=== PATIENT | male | born 1985 | race Caucasian/White ===

== ENCOUNTER 2022-05-08 10:29 | Emergency (ER) | payer BC, SELFPAY ==
[2022-05-08 10:34] VITALS: BP 125/83; PULSE 86; RESP 18; TEMP 37.2; O2SAT 98; BMI 25.1
[2022-05-08 10:47] LABS: MANUAL DIFF FLAG NO
[2022-05-08 10:48] LABS: Basophils Percent Auto 0.4 % (0-2); Eosinophils Absolute Auto 0.1 X10*3/uL (0.0-0.4); Eosinophils Percent Auto 1.3 % (0-4); Hematocrit 38.2 % (42.0-52.0); Hemoglobin 13.1 g/dl (14.0-18.0); Imm Gran Abs Auto 0.02 X10*3/uL (0.00-0.03); Imm Gran Pct Auto 0.3 % (0.0-0.4); Lymphocytes Absolute Auto 1.1 X10*3/uL (1.2-4.9); Lymphocytes Percent Auto 15.6 % (20-40); Mean Corpuscular HGB Conc 34.3 g/dl (31.0-36.0); Mean Corpuscular Hemoglobin 29.2 pg (27.0-33.0); Mean Corpuscular Volume 85.1 fL (80.0-98.0); Mean Platelet Volume 9.1 fL (9.4-12.4); Monocytes Absolute Auto 0.8 X10*3/uL (0.1-1.2); Neutrophils Percent Auto 71.4 % (45-73); Platelet Count 226 X10*3/uL (160-400); Red Blood Count 4.49 X10*6/uL (4.60-5.80)
[2022-05-08 11:07] LABS: COVID-19 Test Negative (Negative); IDNOW Serial# 16C4AD1C; IDNOW Serial# BCCEAD1C; Influenza A Negative (Negative); Influenza B2 Negative (Negative)
[2022-05-08 11:08] LABS: Anion Gap 13 (12-20); Blood Urea Nitrogen 14 mg/dL (9-16); Calcium 9.2 mg/dL (8.4-10.2); Carbon Dioxide 27 mmol/L (22-29); Chloride 105 mmol/L (96-108); Creatinine Clr Calc Pharmacy 115.5; Estimated Glomerular Filt Rate > 60; Glucose Fasting 109 mg/dL (60-99); Potassium 3.9 mmol/L (3.3-5.1); Sodium 141 mmol/L (135-145)
--- NOTE | 2022-05-08 11:19 | ED_ITS ---
HPI - General Adult General Chief complaint: Fever <Miriam Villar CNP - Last Filed: 05/08/22 13:36> Stated complaint: Fever/Diarrhea/Neck pain <Miriam Villar CNP - Last Filed: 05/08/22 13:36> Time Seen by Provider: 05/08/22 10:56 <Miriam Villar CATTYMAN - Last Filed: 05/08/22 13:36> Source: patient <Miriam Villar CNP - Last Filed: 05/08/22 13:36> Mode of arrival: ambulatory <Miriam Villar CNP - Last Filed: 05/08/22 13:36> Limitations: no limitations <Miriam Villar CNP - Last Filed: 05/08/22 13:36> History of Present Illness HPI narrative: Patient is a 36-year-old male who presents emergency department for evaluation. Patient reports 4 days ago with onset of stiffness to his back diffuse myalgias, feeling ?foggy?, and generalized fatigue. Three days ago he began having subjective fevers and chills. Reports 2 days ago T-max 102 degrees, was alternating between Tylenol and ibuprofen, which is resolved typically for hours before febrile again. Yesterday he began developing diffuse abdominal pain with diarrhea, reportedly experienced 6-8 episodes of watery/semi soft stools also with white mucus present, in small amounts of bright red blood. In addition, he was developing neck stiffness since yesterday that is made worse with rotation of the neck. He denies any known sick contacts. His is at home with him and is not experiencing any similar symptoms. He took it at home COVID-19 test the day that his symptoms started which was negative. Denies recent URI symptoms, ear pain, sore throat, chest pain, shortness of breath, difficulty breathing, vomiting. <Miriam Villar CNP - Last Filed: 05/08/22 13:36> Related Data Allergies/adverse reactions: Allergies Allergy/AdvReac Type Severity Reaction Status Date / Time loratadine Allergy Difficulty Verified 05/08/22 10:56 Swallowing <Miriam VillarSANYA - Last Filed: 05/08/22 13:36> Review of Systems Review of Systems: Yes all other systems are reviewed and are negative <Miriam Villar CNP - Last Filed: 05/08/22 13:36> [facility] Past Medical History Attestation statement: The following information was validated with the patient. <Miriam Villar CNP - Last Filed: 05/08/22 13:36> Source: old records reviewed <Miriam Villar CNP - Last Filed: 05/08/22 13:36> Social History Social History: Social History Advance Directives: No Advance Directives Information Provided: Yes <Miriam Villar CNP - Last Filed: 05/08/22 13:36> Physical Exam ED Vital Signs: Vital Signs - 24 hr 05/08/22 10:34 Temperature 98.9 F Pulse Rate 86 Respiratory Rate 18 Blood Pressure 125/83 Pulse Oximetry 98 Oxygen Delivery Method Room Air BMI result Body Mass Index 25.1 <Miriam Villar CNP - Last Filed: 05/08/22 13:36> Vital Signs - 24 hr 05/08/22 10:34 Temperature 98.9 F Pulse Rate 86 Respiratory Rate 18 Blood Pressure 125/83 Pulse Oximetry 98 Oxygen Delivery Method Room Air BMI result Body Mass Index 25.1 <Ezequiel Milligan MD - Last Filed: 05/08/22 11:49> Appearance: Alert.?Oriented to person, place and time. No acute dis tress.?Normal affect. Eyes: Pupils equal, round and reactive to light.? EOMI. No nystagmus. ENT: Pharynx normal.??TM normal bilaterally. Neck: Normal inspection.? Neck supple.? No nuchal rigidity. ? CVS: Heart sounds normal. Normal heart rate and rhythm.? Pulses normal.?? Respiratory: No respiratory distress.? Lung sounds clear to auscultation bilaterally?? Abdomen: Soft with diffuse abdominal tenderness. Normoactive bowel sounds.?? Skin: Skin warm and dry.? Normal skin color.? Extremities: No lower extremity edema.? No calf ttp? Neuro: Moves all extremities spontaneously. Sensation intact bilaterally. CN II- XII intact. No focal neuro deficits. Brudzinski sign negative, Kernig sign negative. Ambulates with normal steady gait. <Miriam Villar SANYA - Last Filed: 05/08/22 13:36> Course Reevaluation(s) Reevaluation #1: CBC reveals no leukocytosis or leukopenia, a very mild normocytic anemia, platelet count within normal limits. CMP is unremarkable, lipase within normal limits. COVID-19 and influenza testing are negative. Will obtain GI panel/C diff testing. <Miriam Villar CNP - Last Filed: 05/08/22 13:36> Time: 11:30 <Miriam Villar CNP - Last Filed: 05/08/22 13:36> Reevaluation #2: I agree with YARD CLERK Jian, exam is normal, non meningismus, clear lungs, soft abdomen. 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 <Miriam Villar CNP - Last Filed: 05/08/22 13:36> I agree with YARD CLERK Jian, exam is normal, non meningismus, clear lungs, soft abdomen. 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 Stool specimen obtained is insufficient amount for GI panel testing. Patient advised, he declines interest in waiting to provide additional sample, and will follow-up with his PCP. We reviewed worrisome signs and symptoms that would warrant re-evaluation in the emergency department. All questions answered. Stable for discharge. <Miriam Villar CNP - Last Filed: 05/08/22 13:36> Time: 13:31 <Miriam Villar CNP - Last Filed: 05/08/22 13:36> Medical Decision Making Medical Decision Making MDM Narrative: Patient is a 36-year-old male with reported past medical history of presenting to the emergency department for evaluation myalgias, fever, abdominal pain and diarrhea. He is without nuchal rigidity headache, Kernig sign and Brudzinski sign are negative, I have a low suspicion for meningitis. Abdominal pain is diffuse, no rebound tenderness, no rigidity, no guarding, does not appear consistent with acute abdomen, lower suspicion for appendicitis, colitis, obstruction, diverticulitis. Symptoms may also be in relation to viral syndrome such as COVID-19, influenza. <Miriam JordanSANYA schwab - Last Filed: 05/08/22 13:36> Differential Diagnosis Differential Diagnoses: The differential diagnosis associated with the presentation includes (As noted above) <Miriam VillarSANYA - Last Filed: 05/08/22 13:36> Lab Data Result Diagrams: 05/08/22 10:42 05/08/22 10:42 <Miriam Giajuwan Villar CNP - Last Filed: 05/08/22 13:36> Labs: Lab Results 05/08/22 05/08/22 05/08/22 Range/Units 10:42 10:42 10:42 WBC 7.0 (4.8-10.8) X10*3/uL RBC 4.49 L (4.60-5.80) X10*6/uL Hgb 13.1 L (14.0-18.0) g/dl Hct 38.2 L (42.0-52.0) % MCV 85.1 (80.0-98.0) fL MCH 29.2 (27.0-33.0) pg MCHC 34.3 (31.0-36.0) g/dl RDW 12.0 (11.0-16.0) % Plt Count 226 (160-400) X10*3/uL MPV 9.1 L (9.4-12.4) fL Immature Gran % (Auto) 0.3 (0.0-0.4) % Neut % (Auto) 71.4 (45-73) % Lymph % (Auto) 15.6 L (20-40) % [place] % (Auto) 11.0 (2-11) % Eos % (Auto) 1.3 (0-4) % Baso % (Auto) 0.4 (0-2) % Lymph # (Auto) 1.1 L (1.2-4.9) X10*3/uL [place] # (Auto) 0.8 (0.1-1.2) X10*3/uL Eos # (Auto) 0.1 (0.0-0.4) X10*3/uL Baso # (Auto) 0.0 (0.0-0.2) X10*3/uL Abs Immat Gran (auto) 0.02 (0.00-0.03) X10*3/uL Absolute Neuts (auto) 5.0 (2.0-8.3) x10*3/uL Absolute Nucleated RBC 0.000 (0.0-0.012) X10*3/uL Nucleated RBC % (auto) 0.0 (0.0-0.2) /100WBC Sodium 141 (135-145) mmol/L Potassium 3.9 (3.3-5.1) mmol/L Chloride 105 (96-108) mmol/L Carbon Dioxide 27 (22-29) mmol/L Anion Gap 13 (12-20) BUN 14 (9-16) mg/dL Creatinine 0.95 (0.5-1.4) mg/dL Estim Creat Clear Calc 115.5 Estimated GFR > 60 Fasting Glucose 109 H (60-99) mg/dL Calcium 9.2 (8.4-10.2) mg/dL Total Bilirubin 0.6 (0.0-1.0) mg/dL Direct Bilirubin 0.2 (0.0-0.5) mg/dL AST 20 (5-37) U/L ALT 24 (0-40) U/L Alkaline Phosphatase 44 (39-117) U/L Total Protein 7.0 (6.5-8.0) g/dL Albumin 4.0 (3.5-5.0) g/dL Lipase 24 (8-78) U/L Stl C. cayetanensis PCR Stool Rotavirus A PCR Stl Adenov F 40/41 PCR Stool Astrovirus (PCR) Stool Campylobacter PCR Stool Cryptosporidium PCR Stl Sh Tox Pr E STEC PCR Stool E coli O157 PCR Stl Enterotoxigenic E PCR Stool EPEC (PCR) Stool EAEC (PCR) Stl E. histolytica PCR Stool Giardia Lamblia PCR Stl P. shigelloides PCR Stool Salmonella PCR Stool Sapovirus (PCR) Stl Shigella/EIEC PCR St Y.enterocolitica PCR Stool Vibrio (PCR) Stl Vibrio cholerae PCR Stl Norovirus GI/GII PCR C. difficile Tox B Gene (Negative) COVID-19 (RAMON) (Negative) COVID-19 Clin Com Influenza Type A (KIP) Negative (Negative) Influenza Type B (KIP) Negative (Negative) Influenza A & B Note See Note 05/08/22 05/08/22 05/08/22 Range/Units 10:42 11:56 11:56 WBC (4.8-10.8) X10*3/uL RBC (4.60-5.80) X10*6/uL Hgb (14.0-18.0) g/dl Hct (42.0-52.0) % MCV (80.0-98.0) fL MCH (27.0-33.0) pg MCHC (31.0-36.0) g/dl RDW (11.0-16.0) % Plt Count (160-400) X10*3/uL MPV (9.4-12.4) fL Immature Gran % (Auto) (0.0-0.4) % Neut % (Auto) (45-73) % Lymph % (Auto) (20-40) % [place] % (Auto) (2-11) % Eos % (Auto) (0-4) % Baso % (Auto) (0-2) % Lymph # (Auto) (1.2-4.9) X10*3/uL [place] # (Auto) (0.1-1.2) X10*3/uL Eos # (Auto) (0.0-0.4) X10*3/uL Baso # (Auto) (0.0-0.2) X10*3/uL Abs Immat Gran (auto) (0.00-0.03) X10*3/uL Absolute Neuts (auto) (2.0-8.3) x10*3/uL Absolute Nucleated RBC (0.0-0.012) X10*3/uL Nucleated RBC % (auto) (0.0-0.2) /100WBC Sodium (135-145) mmol/L Potassium (3.3-5.1) mmol/L Chloride (96-108) mmol/L Carbon Dioxide (22-29) mmol/L Anion Gap (12-20) BUN (9-16) mg/dL Creatinine (0.5-1.4) mg/dL Estim Creat Clear Calc Estimated GFR Fasting Glucose (60-99) mg/dL Calcium (8.4-10.2) mg/dL Total Bilirubin (0.0-1.0) mg/dL Direct Bilirubin (0.0-0.5) mg/dL AST (5-37) U/L ALT (0-40) U/L Alkaline Phosphatase (39-117) U/L Total Protein (6.5-8.0) g/dL Albumin (3.5-5.0) g/dL Lipase (8-78) U/L Stl C. cayetanensis PCR QNS Stool Rotavirus A PCR QNS Stl Adenov F 40/41 PCR QNS Stool Astrovirus (PCR) QNS Stool Campylobacter PCR QNS Stool Cryptosporidium PCR QNS Stl Sh Tox Pr E STEC PCR QNS Stool E coli O157 PCR QNS Stl Enterotoxigenic E PCR QNS Stool EPEC (PCR) QNS Stool EAEC (PCR) QNS Stl E. histolytica PCR QNS Stool Giardia Lamblia PCR QNS Stl P. shigelloides PCR QNS Stool Salmonella PCR QNS Stool Sapovirus (PCR) QNS Stl Shigella/EIEC PCR QNS St Y.enterocolitica PCR QNS Stool Vibrio (PCR) QNS Stl Vibrio cholerae PCR QNS Stl Norovirus GI/GII PCR QNS C. difficile Tox B Gene NEGATIVE (Negative) COVID-19 (RAMON) Negative (Negative) COVID-19 Clin Com See Note Influenza Type A (KIP) (Negative) Influenza Type B (KIP) (Negative) Influenza A & B Note <Miriam Villar, CATTYMAN - Last Filed: 05/08/22 13:36> Lab Results 05/08/22 05/08/22 05/08/22 Range/Units 10:42 10:42 10:42 WBC 7.0 (4.8-10.8) X10*3/uL RBC 4.49 L (4.60-5.80) X10*6/uL Hgb 13.1 L (14.0-18.0) g/dl Hct 38.2 L (42.0-52.0) % MCV 85.1 (80.0-98.0) fL MCH 29.2 (27.0-33.0) pg MCHC 34.3 (31.0-36.0) g/dl RDW 12.0 (11.0-16.0) % Plt Count 226 (160-400) X10*3/uL MPV 9.1 L (9.4-12.4) fL Immature Gran % (Auto) 0.3 (0.0-0.4) % Neut % (Auto) 71.4 (45-73) % Lymph % (Auto) 15.6 L (20-40) % [place] % (Auto) 11.0 (2-11) % Eos % (Auto) 1.3 (0-4) % Baso % (Auto) 0.4 (0-2) % Lymph # (Auto) 1.1 L (1.2-4.9) X10*3/uL [place] # (Auto) 0.8 (0.1-1.2) X10*3/uL Eos # (Auto) 0.1 (0.0-0.4) X10*3/uL Baso # (Auto) 0.0 (0.0-0.2) X10*3/uL Abs Immat Gran (auto) 0.02 (0.00-0.03) X10*3/uL Absolute Neuts (auto) 5.0 (2.0-8.3) x10*3/uL Absolute Nucleated RBC 0.000 (0.0-0.012) X10*3/uL Nucleated RBC % (auto) 0.0 (0.0-0.2) /100WBC Sodium 141 (135-145) mmol/L Potassium 3.9 (3.3-5.1) mmol/L Chloride 105 (96-108) mmol/L Carbon Dioxide 27 (22-29) mmol/L Anion Gap 13 (12-20) BUN 14 (9-16) mg/dL Creatinine 0.95 (0.5-1.4) mg/dL Estim Creat Clear Calc 115.5 Estimated GFR > 60 Fasting Glucose 109 H (60-99) mg/dL Calcium 9.2 (8.4-10.2) mg/dL Total Bilirubin 0.6 (0.0-1.0) mg/dL Direct Bilirubin 0.2 (0.0-0.5) mg/dL AST 20 (5-37) U/L ALT 24 (0-40) U/L Alkaline Phosphatase 44 (39-117) U/L Total Protein 7.0 (6.5-8.0) g/dL Albumin 4.0 (3.5-5.0) g/dL Lipase 24 (8-78) U/L Stl C. cayetanensis PCR Stool Rotavirus A PCR Stl Adenov F PCR Stool Astrovirus (PCR) Stool Campylobacter PCR Stool Cryptosporidium PCR Stl Sh Tox Pr E STEC PCR Stool E coli O157 PCR Stl Enterotoxigenic E PCR Stool EPEC (PCR) Stool EAEC (PCR) Stl E. histolytica PCR Stool Giardia Lamblia PCR Stl P. shigelloides PCR Stool Salmonella PCR Stool Sapovirus (PCR) Stl Shigella/EIEC PCR St Y.enterocolitica PCR Stool Vibrio (PCR) Stl Vibrio cholerae PCR Stl Norovirus GI/GII PCR C. difficile Tox B Gene (Negative) COVID-19 (RAMON) (Negative) COVID-19 Clin Com Influenza Type A (KIP) Negative (Negative) Influenza Type B (KIP) Negative (Negative) Influenza A & B Note See Note 05/08/22 05/08/22 05/08/22 Range/Units 10:42 11:56 11:56 WBC (4.8-10.8) X10*3/uL RBC (4.60-5.80) X10*6/uL Hgb (14.0-18.0) g/dl Hct (42.0-52.0) % MCV (80.0-98.0) fL MCH (27.0-33.0) pg MCHC (31.0-36.0) g/dl RDW (11.0-16.0) % Plt Count (160-400) X10*3/uL MPV (9.4-12.4) fL Immature Gran % (Auto) (0.0-0.4) % Neut % (Auto) (45-73) % Lymph % (Auto) (20-40) % [place] % (Auto) (2-11) % Eos % (Auto) (0-4) % Baso % (Auto) (0-2) % Lymph # (Auto) (1.2-4.9) X10*3/uL [place] # (Auto) (0.1-1.2) X10*3/uL Eos # (Auto) (0.0-0.4) X10*3/uL Baso # (Auto) (0.0-0.2) X10*3/uL Abs Immat Gran (auto) (0.00-0.03) X10*3/uL Absolute Neuts (auto) (2.0-8.3) x10*3/uL Absolute Nucleated RBC (0.0-0.012) X10*3/uL Nucleated RBC % (auto) (0.0-0.2) /100WBC Sodium (135-145) mmol/L Potassium (3.3-5.1) mmol/L Chloride (96-108) mmol/L Carbon Dioxide (22-29) mmol/L Anion Gap (12-20) BUN (9-16) mg/dL Creatinine (0.5-1.4) mg/dL Estim Creat Clear Calc Estimated GFR Fasting Glucose (60-99) mg/dL Calcium (8.4-10.2) mg/dL Total Bilirubin (0.0-1.0) mg/dL Direct Bilirubin (0.0-0.5) mg/dL AST (5-37) U/L ALT (0-40) U/L Alkaline Phosphatase (39-117) U/L Total Protein (6.5-8.0) g/dL Albumin (3.5-5.0) g/dL Lipase (8-78) U/L Stl C. cayetanensis PCR QNS Stool Rotavirus A PCR QNS Stl Adenov F 40/41 PCR QNS Stool Astrovirus (PCR) QNS Stool Campylobacter PCR QNS Stool Cryptosporidium PCR QNS Stl Sh Tox Pr E STEC PCR QNS Stool E coli O157 PCR QNS Stl Enterotoxigenic E PCR QNS Stool EPEC (PCR) QNS Stool EAEC (PCR) QNS Stl E. histolytica PCR QNS Stool Giardia Lamblia PCR QNS Stl P. shigelloides PCR QNS Stool Salmonella PCR QNS Stool Sapovirus (PCR) QNS Stl Shigella/EIEC PCR QNS St Y.enterocolitica PCR QNS Stool Vibrio (PCR) QNS Stl Vibrio cholerae PCR QNS Stl Norovirus GI/GII PCR QNS C. difficile Tox B Gene NEGATIVE (Negative) COVID-19 (RAMON) Negative (Negative) COVID-19 Clin Com See Note Influenza Type A (KIP) (Negative) Influenza Type B (KIP) (Negative) Influenza A & B Note <Ezequiel Milligan MD - Last Filed: 05/08/22 11:49> Discharge Plan Discharge Clinical Impression: Viral syndrome <Miriam Villar CNP - Last Filed: 05/08/22 13:36> Patient Disposition: Home, Self-Care <Miriam Villar CNP - Last Filed: 05/08/22 13:36> Instructions: Viral Syndrome (ED) <Miriam Villar CNP - Last Filed: 05/08/22 13:36> Additional Instructions: As discussed your blood work today to is overall normal. Testing for COVID-19 and influenza are negative. Received if testing is negative. We were unable to send your stool specimen for further testing; bacterial and viral infections as there was an insufficient amount. Please be sure to stay well hydrated, follow a bland diet including crackers, bananas, rice, Summer, toes, vegetables which may progress to plain baked avoid chicken or turkey, avoid any dairy products or foods high in fat or grease. You can take ibuprofen 200 mg, 3 tablets (600mg) every 6-8 hours as needed for pain, in addition to Tylenol 500 mg, 2 tablets (1,000mg) every 4-6 hours as needed for pain, but not to exceed 3 doses daily (3,000mg).? Follow-up with your primary care provider for persistent symptoms. <Miriam Villar CNP - Last Filed: 05/08/22 13:36> Referrals: Physician,None [Primary Care Provider] - <Miriam Villar CNP - Last Filed: 05/08/22 13:36>
[2022-05-08 12:01] LABS: Alanine Aminotransferase 24 U/L (0-40); Alkaline Phosphatase 44 U/L (39-117); Aspartate Amino Transferase 20 U/L (5-37); Bilirubin Direct 0.2 mg/dL (0.0-0.5); Bilirubin Total 0.6 mg/dL (0.0-1.0); Lipase 24 U/L (8-78)
[2022-05-08 12:44] LABS: Adenovirus F 40/41 QNS (Not Detect.); Astrovirus QNS (Not Detect.); Campylobacter QNS (Not Detect.); Cryptosporidium QNS (Not Detect.); Cyclospora cayetanensis QNS (Not Detect.); E. coli EAEC QNS (Not Detect.); E. coli EPEC QNS (Not Detect.); E. coli ETEC QNS (Not Detect.); E. coli O157 QNS (Not Detect.); E. coli STEC QNS (Not Detect.); Entamoeba histolytica QNS (Not Detect.); Giardia lamblia QNS (Not Detect.); Norovirus GI/GII QNS (Not Detect.); Plesiomonas shigelloides QNS (Not Detect.); Rotavirus A QNS (Not Detect.); Salmonella QNS (Not Detect.); Sapovirus QNS (Not Detect.); Shigella sp./EIEC QNS (Not Detect.); Vibrio QNS (Not Detect.); Vibrio Cholerae QNS (Not Detect.); Yersinia enterocolitica QNS (Not Detect.)
[2022-05-08 12:54] LABS: CDiff Gene PCR NEGATIVE (Negative)
== END 2022-05-08 13:41 | disposition home or self-care (01) ==
PROVIDERS: Nurse Practitioner Family; Emergency Provider Emergency Medicine
DX: B34.9 Viral infection, unspecified (principal); R50.9 Fever, unspecified; Z20.822 Contact with and (suspected) exposure to COVID-19; Z20.828 Contact with and (suspected) exposure to other viral communicable diseases; Z79.899 Other long term (current) drug therapy
CPT/HCPCS: 80048; 80076; 83690; 85025; 87493; 87502; 87507; 87635; 99283

== ENCOUNTER 2022-08-30 07:58 | Outpatient (REF) | payer BC, SELFPAY ==
[2022-08-30 08:10] LABS: MANUAL DIFF FLAG NO
[2022-08-30 08:27] LABS: Basophils Percent Auto 0.4 % (0-2); Eosinophils Absolute Auto 0.3 X10*3/uL (0.0-0.4); Eosinophils Percent Auto 4.5 % (0-4); Hematocrit 39.2 % (42.0-52.0); Hemoglobin 13.2 g/dl (14.0-18.0); Imm Gran Abs Auto 0.01 X10*3/uL (0.00-0.03); Imm Gran Pct Auto 0.2 % (0.0-0.4); Immature Retic Fraction 3.2 % (2.3-13.4); Lymphocytes Percent Auto 37.1 % (20-40); Mean Corpuscular HGB Conc 33.7 g/dl (31.0-36.0); Mean Corpuscular Hemoglobin 29.7 pg (27.0-33.0); Mean Corpuscular Volume 88.1 fL (80.0-98.0); Mean Platelet Volume 9.6 fL (9.4-12.4); Monocytes Absolute Auto 0.5 X10*3/uL (0.1-1.2); Monocytes Percent Auto 9.8 % (2-11); Neutrophils Absolute Auto 2.6 x10*3/uL (2.0-8.3); Platelet Count 238 X10*3/uL (160-400); Red Blood Count 4.45 X10*6/uL (4.60-5.80); Retic HGB Equivalent 35.4 pg (30.0-35.0); Reticulocytes Absolute 0.045 X10*6/uL (0.026-0.095); White Blood Count 5.5 X10*3/uL (4.8-10.8)
[2022-08-30 09:02] LABS: Alanine Aminotransferase 19 U/L (0-40); Albumin Level 4.4 g/dL (3.5-5.0); Alkaline Phosphatase 46 U/L (39-117); Anion Gap 9 (12-20); Aspartate Amino Transferase 23 U/L (5-37); Bilirubin Total 0.6 mg/dL (0.0-1.0); Blood Urea Nitrogen 19 mg/dL (9-16); Calcium 9.9 mg/dL (8.4-10.2); Carbon Dioxide 30 mmol/L (22-29); Chloride 106 mmol/L (96-108); Cholesterol 162 mg/dL; Estimated Glomerular Filt Rate > 60; Glucose Random 89 mg/dL (60-115); HDL Cholesterol 55 mg/dL; Iron 68 mcg/dL (45-160); LDL Cholesterol Calculated 100 mg/dl; Percent Iron Saturation 31 % (15-50); Potassium 4.4 mmol/L (3.3-5.1); Sodium 141 mmol/L (135-145); Total Iron Binding Capacity 221 mcg/dL (228-428); Total Protein 7.7 g/dL (6.5-8.0); Triglycerides 38 mg/dL; Unsaturated Iron Binding 153 ug/dL
[2022-08-30 09:19] LABS: Ferritin 188 ng/mL (20-250); Free T4 (Free Thyroxine) 0.91 ng/dL (0.71-1.85); Thyroid Stimulating Hormone 1.67 uIU/mL (0.32-4.0)
[2022-08-30 09:31] LABS: Vitamin B12 459 pg/mL (200-900)
== END 2022-08-30 07:59 | disposition home or self-care (01) ==
LOC: HO.LAB 07:58
PROVIDERS: PCP Internal Medicine; Visit Provider Internal Medicine
DX: D64.9 Anemia, unspecified (principal); E78.00 Pure hypercholesterolemia, unspecified
CPT/HCPCS: 36415; 80053; 80061; 82607; 82728; 82746; 83540; 84439; 84443; 85025; 85045

== ENCOUNTER → 2022-11-10 10:14 | Outpatient (BNV) | payer BC, SELFPAY | PROVIDERS: PCP Internal Medicine; Referring Provider Internal Medicine; Visit Provider Internal Medicine | DX: D64.9 Anemia, unspecified (principal) | CPT/HCPCS: 99203 ==

== ENCOUNTER → 2023-04-05 08:10 | Outpatient (BNVA) | payer BC, SELFPAY | PROVIDERS: PCP Internal Medicine; Visit Provider Nurse Practitioner Family ==

== ENCOUNTER 2023-04-05 08:22 | Outpatient (AMB) | payer BC, SELFPAY ==
--- NOTE | 2023-04-05 08:33 | MHC.OFFVIS ---
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 Pt reports he snores a lot, and wake up gasping. He does not have difficulty falling asleep or staying sleep, but feels tired all the time. He had blood work done, and the result was WNL. Sleep questionnaire: Have you ever been diagnosed with a sleep disorder? No. Have you ever had a sleep study in the past? No. Have you ever been treated for a sleep disorder? No. Do you take medications for a sleep disorder? No. Do you snore? Yes, loudly. Do you wake up gasping at night? Yes. Do you have episodes of apneas? Yes. If yes, are they witnessed? Yes. Do you have episodes of nocturnal chest pain or dyspnea? Yes, sometimes. Do you have difficulty initiating sleep? No. Do you have difficulty maintaining sleep? No. Do you wake up tired? Yes. Do you have headaches upon awakening? No Do you wake up with dry mouth or throat? Yes. Do you have GERD? No. Do you have nocturia? No. Do you have nocturnal leg cramps? No. Do you have symptoms of restless legs? No. Do you act out your dreams? No. Sleep hygiene questionnaire: What is your usual sleep routine? Usual bedtime is at 11pm ; Usual wake up time is at 6:45 am. Do you take naps? No. Is your sleep environment cool, dark, and quiet? Yes. Do you exercise? No. Do you take caffeine or other stimulants? 16 oz of coffee daily. Do you use electronics in bed? No. 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 Hypersomnolence questionnaire: Do you have daytime tiredness or fatigue? Yes. Do you easily fall asleep when inactive? No. Have you ever had episodes of sudden weakness? No. Have you ever had episodes of sudden weakness associated with strong emotions? No. PFSH Surgical History History of removal of cyst (~2016) Family History Mother No problems noted. Father FH: kidney cancer Sister No problems noted. Maternal Grandmother Bladder cancer Paternal Grandfather Lymphoma Social History Housing: House Alcohol intake: current Patient Tobacco Use Status: Former Tobacco user Tobacco use type: Cigarette Years Smoked: quit 2010 3 cigarettes a day e-Cigarette/Vaping Use: Never Used Second Hand Smoke Exposure: No service: No Current occupational status: employed Cognitive needs: No Hearing needs: No Vision needs: No Review of Systems Const All systems reviewed & are unremarkable except as noted in HPI and below Physical Exam Vital Signs: Last Vital Signs Temp 98 F 04/05/23 08:36 Pulse 73 04/05/23 08:36 BP 122/70 04/05/23 08:36 BMI result Body Mass Index 27.2 Const General: cooperative and healthy appearing Nutritional Appearance: overweight Orientation/consciousness: patient oriented x3 Limitations: no limitations Neck Neck: Yes full ROM and Yes supple Resp Effort & Inspection: normal respiratory effort and able to speak in complete sentences Neuro General: patient oriented x3, gait normal and moves all extremities Cranial nerves: Yes CN's II-XII intact bilaterally Cognition (Neuro): normal cognition Gait exam (Neuro): Normal gait present Motor exam (neuro): 5/5 motor strength present throughout Psych Speech and movement: Normal speech and movement present Affect: normal affect Attitude: cooperative Assessment & Plan Assessment & Plan (1) Hypersomnia: Comment: EPWORTH Sleepiness scale 14 Code(s): G47.10 - Hypersomnia, unspecified (2) Loud snoring: Code(s): R06.83 - Snoring Plan Pt is advised to undergo home sleep study to assess for sleep apnea. Will f/u with pt after study to discuss results and appropriate treatment options. Continue to practice good sleep hygiene. Pt to call with any worsening concerns or questions. Orders: Orders RT home sleep study Today G47.10 - Hypersomnia, unspecified, R06.83 - Snoring Coding Level of Care Code New Pt Level 3 (21042) Diagnoses Hypersomnia G47.10 Loud snoring R06.83
[2023-04-05 08:36] VITALS: BP 122/70; PULSE 73; TEMP 36.6; BMI 27.2
== END 2023-04-05 08:34 | disposition home or self-care (01) ==
PROVIDERS: PCP Internal Medicine; Visit Provider Nurse Practitioner Family
DX: G47.10 Hypersomnia, unspecified (principal); R06.83 Snoring
CPT/HCPCS: 99203

== ENCOUNTER → 2023-05-24 08:04 | Outpatient (REF) | payer BC, SELFPAY | LOC: HO.SL 08:04 | PROVIDERS: PCP Internal Medicine; Visit Provider Nurse Practitioner Family | DX: G47.33 Obstructive sleep apnea (adult) (pediatric) (principal); G47.10 Hypersomnia, unspecified; R06.83 Snoring | CPT/HCPCS: 95806 ==

== ENCOUNTER → 2023-05-24 08:14 | Outpatient (BNV) | payer BC, SELFPAY | PROVIDERS: PCP Internal Medicine; Visit Provider Psychiatry & Neurology Neurology | DX: G47.33 Obstructive sleep apnea (adult) (pediatric) (principal) | CPT/HCPCS: 95806 ==

== ENCOUNTER 2023-10-11 07:36 | Outpatient (AMB) | payer BC, SELFPAY ==
--- NOTE | 2023-10-11 07:39 | MHC.OFFVIS ---
Vital Signs 10/11/23 07:41 Height 5 ft 11 in Weight 193 lb BMI 26.9 BP 108/70 Blood Pressure Location Rt brachial Position Sitting Respiration 16 Pulse 62 Pulse Source Pulse Oximeter Pulse Oximetry (%) 97 Oxygen Delivery Method Room Air Intake Visit Reasons: 4 mo f/u - Confirmed Intake Note: Pt presents to the office fro a 6 month follow up for ROSAURA. Medical Office Administrator Required: No Allergies loratadine Allergy (Verified 10/11/23 07:41) Difficulty Swallowing HPI Comments Details: 37y/o male comes for f/u of ROSAURA He was diagnosed with mild sleep apnea with increased severity in supine sleep. AHI 13 supine AHI 22 O2 noreen 82 % in May 2023 He was started on AUtoPAP 5-20 and his daytime sleepiness and night time sleep has improved. But he is not compliant - says he wright s anew born and wakes up often in the middle of the night. [facility] Medical History (Updated 10/11/23 @ 07:57 by Nancy Martinez MD) Obstructive sleep apnea Surgical History History of removal of cyst (~2015) Family History Mother No problems noted. Father FH: kidney cancer Sister No problems noted. Maternal Grandmother Bladder cancer Paternal Grandfather Lymphoma Social History Housing: House Alcohol intake: current Patient Tobacco Use Status: Former Tobacco user Tobacco use type: Cigarette Years Smoked: quit 2010 3 cigarettes a day e-Cigarette/Vaping Use: Never Used Second Hand Smoke Exposure: No service: No Current occupational status: employed Cognitive needs: No Hearing needs: No Vision needs: No Physical Exam Vital Signs: Last Vital Signs Pulse 62 10/11/23 07:41 Resp 16 10/11/23 07:41 BP 108/70 10/11/23 07:41 Pulse Ox 97 10/11/23 07:41 Oxygen Delivery Method Room Air 10/11/23 07:41 BMI result Body Mass Index 26.9 Const General: cooperative and healthy appearing Orientation/consciousness: patient oriented x3 Limitations: no limitations Neck Neck: Yes full ROM and Yes supple Resp Effort & Inspection: normal respiratory effort and able to speak in complete sentences Neuro General: patient oriented x3, gait normal and moves all extremities Cognition (Neuro): normal cognition Gait exam (Neuro): Normal gait present Psych Speech and movement: Normal speech and movement present Affect: normal affect Attitude: cooperative Assessment & Plan Assessment & Plan (1) Obstructive sleep apnea: Comment: HST 06/03-AHI 13 supine AHI 22 O2 noreen 82% Code(s): G47.33 - Obstructive sleep apnea (adult) (pediatric) Category: Medical Plan compliance with CPAP stressed continue AUtoPAP 5-20 cm of water F/u CPAP clinic in 1 year Coding Level of Care Code Est Pt Level 3 (34148) Diagnoses Obstructive sleep apnea G47.33
[2023-10-11 07:41] VITALS: BP 108/70; PULSE 62; RESP 16; O2SAT 97; BMI 26.9
== END 2023-10-11 07:57 | disposition home or self-care (01) ==
PROVIDERS: PCP Internal Medicine; Visit Provider Psychiatry & Neurology Neurology
DX: G47.33 Obstructive sleep apnea (adult) (pediatric) (principal)
CPT/HCPCS: 99213

== ENCOUNTER → 2023-10-11 07:36 | Outpatient (BNVA) | payer BC, SELFPAY | PROVIDERS: PCP Internal Medicine; Visit Provider Psychiatry & Neurology Neurology ==

== ENCOUNTER 2024-01-15 16:27 | Outpatient (AMB) | payer BC, SELFPAY ==
--- NOTE | 2024-01-15 16:36 | A.OFFPC_ITS ---
Vital Signs 01/15/24 16:37 Height 5 ft 11 in Weight 195 lb 4 oz BMI 27.2 BP 120/70 Blood Pressure Location Lt brachial Position Sitting Pulse 60 Pulse Source Pulse Oximeter Pulse Oximetry (%) 98 Oxygen Delivery Method Room Air Intake Visit Reasons: Follow Up Examiner Of Currency Required: No Accompanied by: Self / Same As Patient Allergies loratadine Allergy (Verified 01/15/24 17:01) Difficulty Swallowing Tobacco use date assessed: 01/15/24 Dental Screening Dental Screen Date: 01/15/24 Did you have a dental visit in the last 12 months?: Yes Did you have a dental problem in the last 6 months where you did not have access to dental care?: No Was dental information given to patient?: Patient has dentist HPI Follow Up HPI Details 38-year-old male with a history of asthm a GERD and obstructive sleep apnea coming in for follow-up. Last seen in 09/29/2022. Patient sees Neurology for the obstructive sleep apnea and advised to use the CPAP. As for the anemia has seen hematology oncology mild normocytic anemia no deficiencies noted no evidence to suggest thalassemia or sickle cell continuing just to monitor. [facility] Medical History (Updated 01/15/24 @ 17:18 by Tiffany Patel MD) Obstructive sleep apnea Surgical History History of removal of cyst (~2015) Family History Mother No problems noted. Father FH: kidney cancer Sister No problems noted. Maternal Grandmother Bladder cancer Paternal Grandfather Lymphoma Social History Housing: House Alcohol intake: current Patient Tobacco Use Status: Former Tobacco user Tobacco use type: Cigarette Years Smoked: quit 2010 3 cigarettes a day e-Cigarette/Vaping Use: Never Used Second Hand Smoke Exposure: No service: No Current occupational status: employed Cognitive needs: No Hearing needs: No Vision needs: No Questionnaire PHQ-9 Over the last 2 weeks, how often have you been bothered by any of the following problems? 1. Little interest or pleasure in doing things: not at all 2. Feeling down, depressed, or hopeless: not at all 3. Trouble falling or staying asleep, or sleeping too much: not at all 4. Feeling tired or having little energy: not at all 5. Poor appetite or overeating: not at all 6. Feeling bad about yourself - or that you are a failure or have let yourself or your family down: not at all 7. Trouble concentrating on things, such as reading the newspaper or watching television: not at all 8. Moving or speaking so slowly that other people could have noticed. Or the opposite - being so fidgety or restless that you have been moving around a lot more than usual: not at all 9. Thoughts that you would be better off or of hurting yourself in some way: not at all Total score: 0 Depression Screening Interpretation: Negative Depression Screening Done: Yes 50112 - PHQ-9 Billing: Yes Source: Developed by Drs. Uriel Helton, Glenda Mcintyre, Howie Peres and colleagues, with an educational marcell from [employer]. Thrive Questionnaire Date Thrive assessed: 01/15/24 I am a: Patient AUDIT C Alcohol Use Questionnaire (AUDIT-C) 1. How often do you have a drink containing alcohol?: Monthly or less 2. How many drinks containing alcohol do you have on a typical day when you are drinking?: 1 or 2 3. How often do you have six or more drinks on one occasion?: Less than monthly Total Score: 2 CHELSY-7 AMB Questionnaire CHELSY-7 Date CHELSY - 7 assessed: 01/15/24 Feeling nervous, anxious, or on edge: 0 = Not at all Not being able to stop or control worryin = Not at all Worrying too much about different things: 0 = Not at all Trouble relaxin = Not at all Being so restless that it is hard to sit still: 0 = Not at all Becoming easily annoyed or irritable: 0 = Not at all Feeling afraid as if something awful might happen: 0 = Not at all Total CHELSY-7 score (0-4 normal; 5-9 mild; 10-14 moderate; 15-21 severe): 0 Source: Developed by Drs. Uriel Helton, Glenda Mcintyre, Howie Peres and colleagues, with an educational marcell from [employer]. CHELSY-7 Assessment Billing CHELSY-7 Assessment Tool: CHELSY-7 Assessment 50819 Physical exam (Primary Care) Vital Signs: Last Vital Signs Pulse 60 01/15/24 16:37 BP 120/70 01/15/24 16:37 Pulse Ox 98 01/15/24 16:37 Oxygen Delivery Method Room Air 01/15/24 16:37 BMI result Body Mass Index 27.2 Tobacco/Smoking Status: Tobacco use Status Tobacco use date assessed 01/15/24 01/15/24 17:01 Patient Tobacco Use Status Former Tobacco user 01/15/24 16:37 Tobacco use type Cigarette 01/15/24 16:37 e-Cigarette/Vaping Use Never Used 01/15/24 16:37 PHQ-9: PHQ-9 Score PHQ-9: Total score 0 01/15/24 17:00 Depression Screening Interpretation: Negative Thrive Assessment: Date of Thrive Assessment Date Thrive assessed 01/15/24 01/15/24 16:59 Const General: alert; No acute distress Eyes Conjunctivae: conjunctivae normal Resp Auscultation: clear to auscultation bilaterally Cardio Rate: regular rate Rhythm: regular rhythm GI Inspection: Yes normal to inspection Extrem General: Yes normal to inspection and No edema Office Procedures Flu Questionnaire Does the patient have a severe egg allergy?: No Immunizations Fluarix Triv [id number] (PF) 45 mcg (15 mcg x 3)/0.5 mL IM syringe Performing Provider: Tiffany Patel MD [facility] Documented (not given) by: WAI Sevilla on 01/15/24 16:58 Reason Not Given: Received Previously Coding Level of Care Code Est Pt Level 4 (66922) Diagnoses Obstructive sleep apnea G47.33 Gastroesophageal reflux disease without esophagitis K21.9 Esophagitis presence: without esophagitis Mild intermittent asthma without complication J45.20 Asthma complication type: uncomplicated Asthma persistence: intermittent Asthma severity: mild Anemia, unspecified type D64.9 Anemia type: unspecified type Groin pain, chronic, left R10.32; G89.29 Additional Codes CHELSY-7 Assessment Billing - CHELSY-7 Assessment Tool: CHELSY-7 Assessment 20367 ([id number]) Assessment & Plan Assessment & Plan (1) Obstructive sleep apnea: Comment: HST 06/03-AHI 13 supine AHI 22 O2 noreen 82% Code(s): G47.33 - Obstructive sleep apnea (adult) (pediatric) Category: Medical Plan: Patient has been following up with Neurology advised to use CPAP but patient cannot tolerate- advised to sleep on the side (2) GERD (gastroesophageal reflux disease): Code(s): K21.9 - Gastro-esophageal reflux disease without esophagitis Category: Medical Qualifiers: Esophagitis presence: without esophagitis Qualified Code(s): K21.9 - Gastro-esophageal reflux disease without esophagitis Plan: Avoid the foods that causes that usually spicy foods, tomato products, juices, coffee, soda and foods that your sensitive to. After eating do not lie down, allow 3-4 hours before in lie down. And keep the head of bed above 30 degrees to avoid the acid from going up. (3) Asthma: Code(s): J45.909 - Unspecified asthma, uncomplicated Category: Medical Qualifiers: Asthma complication type: uncomplicated Asthma persistence: intermittent Asthma severity: mild Qualified Code(s): J45.20 - Mild intermittent asthma, uncomplicated Plan: Continue to use the albuterol inhaler as needed (4) Anemia: Code(s): D64.9 - Anemia, unspecified Category: Medical Qualifiers: Anemia type: unspecified type Qualified Code(s): D64.9 - Anemia, unspecified Plan: Patient has seen hematology oncology and continuing to monitor (5) Groin pain, chronic, left: Code(s): R10.32 - Left lower quadrant pain; G89.29 - Other chronic pain Category: Medical Plan: Referral for physical therapy done Orders: Orders Influenza [id number] Immunization Today Z23 - Encounter for immunization Complete Blood Count Auto Diff Today K21.9 - Gastro-esophageal reflux disease without esophagitis Comprehensive Met. Panel Today K21.9 - Gastro-esophageal reflux disease without esophagitis Thyroid Stimulating Hormone Today K21.9 - Gastro-esophageal reflux disease without esophagitis Lipid Panel Today E78.00 - Pure hypercholesterolemia, unspecified, K21.9 - Gastro-esophageal reflux disease without esophagitis Vitamin B12 and Folate Today K21.9 - Gastro-esophageal reflux disease without esophagitis PT Evaluation and Treatment Today G89.29 - Other chronic pain, R10.32 - Left lower quadrant pain Free T4 (Free Thyroxine) Today K21.9 - Gastro-esophageal reflux disease without esophagitis
[2024-01-15 16:37] VITALS: BP 120/70; PULSE 60; O2SAT 98; BMI 27.2
== END 2024-01-15 17:22 | disposition home or self-care (01) ==
LOC: HO.HMCH 16:28
PROVIDERS: PCP Internal Medicine; Visit Provider Internal Medicine
DX: G47.33 Obstructive sleep apnea (adult) (pediatric) (principal); K21.9 Gastro-esophageal reflux disease without esophagitis; J45.20 Mild intermittent asthma, uncomplicated; D64.9 Anemia, unspecified; R10.32 Left lower quadrant pain; G89.29 Other chronic pain; Z23 Encounter for immunization

== ENCOUNTER → 2024-01-15 16:27 | Outpatient (BNVA) | payer BC, SELFPAY | PROVIDERS: PCP Internal Medicine; Visit Provider Internal Medicine | DX: G47.33 Obstructive sleep apnea (adult) (pediatric) (principal); K21.9 Gastro-esophageal reflux disease without esophagitis; J45.20 Mild intermittent asthma, uncomplicated; D64.9 Anemia, unspecified; G89.29 Other chronic pain; R10.32 Left lower quadrant pain | CPT/HCPCS: 90471; 96127 ==

== ENCOUNTER 2024-05-10 12:22 | Outpatient (REF) | payer BC, SELFPAY ==
[2024-05-10 12:38] LABS: MANUAL DIFF FLAG NO
[2024-05-10 13:10] LABS: Basophils Percent Auto 0.3 % (0-2); Eosinophils Absolute Auto 0.3 X10*3/uL (0.0-0.4); Eosinophils Percent Auto 4.4 % (0-4); Hemoglobin 12.7 g/dl (14.0-18.0); Imm Gran Abs Auto 0.02 X10*3/uL (0.00-0.03); Imm Gran Pct Auto 0.3 % (0.0-0.4); Lymphocytes Percent Auto 34.7 % (20-40); Mean Corpuscular HGB Conc 34.3 g/dl (31.0-36.0); Mean Corpuscular Hemoglobin 29.8 pg (27.0-33.0); Mean Corpuscular Volume 86.9 fL (80.0-98.0); Mean Platelet Volume 9.2 fL (9.4-12.4); Monocytes Absolute Auto 0.5 X10*3/uL (0.1-1.2); Neutrophils Absolute Auto 3.1 x10*3/uL (2.0-8.3); Neutrophils Percent Auto 52.3 % (45-73); Platelet Count 289 X10*3/uL (160-400); Red Blood Count 4.26 X10*6/uL (4.60-5.80); Red Cell Distribution Width 12.7 % (11.0-16.0); White Blood Count 5.9 X10*3/uL (4.8-10.8)
[2024-05-10 14:03] LABS: Albumin Level 4.4 g/dL (3.5-5.0); Alkaline Phosphatase 51 U/L (39-117); Anion Gap 10 (12-20); Aspartate Amino Transferase 27 U/L (5-37); Bilirubin Total 0.4 mg/dL (0.0-1.0); Blood Urea Nitrogen 23 mg/dL (9-16); Calcium 9.4 mg/dL (8.4-10.2); Carbon Dioxide 27 mmol/L (22-29); Chloride 108 mmol/L (96-108); Cholesterol 152 mg/dL (<200); Estimated Glomerular Filt Rate > 60; Free T4 (Free Thyroxine) 1.09 ng/dL (0.71-1.85); Glucose Random 97 mg/dL (60-115); HDL Cholesterol 49 mg/dL (>40); LDL Cholesterol Calculated 90 mg/dL (<100); Potassium 4.1 mmol/L (3.3-5.1); Sodium 141 mmol/L (135-145); Thyroid Stimulating Hormone 1.11 uIU/mL (0.32-4.0); Total Protein 8.1 g/dL (6.5-8.0); Triglycerides 69 mg/dL (<150)
[2024-05-10 14:16] LABS: Folate 10.1 ng/mL (> or = 4.0); Vitamin B12 742 pg/mL (200-900)
[2024-05-10 14:47] LABS: Alanine Aminotransferase 32 U/L (0-40)
== END 2024-05-10 12:23 | disposition home or self-care (01) ==
LOC: HO.LAB 12:22
PROVIDERS: PCP Internal Medicine; Visit Provider Internal Medicine
DX: K21.9 Gastro-esophageal reflux disease without esophagitis (principal); E78.00 Pure hypercholesterolemia, unspecified
CPT/HCPCS: 36415; 80053; 80061; 82607; 82746; 84439; 84443; 85025

== ENCOUNTER 2024-05-27 15:48 | Outpatient (AMB) | payer BC, SELFPAY ==
[2024-05-27 16:41] VITALS: BP 130/84; PULSE 68; TEMP 36.3; O2SAT 97; BMI 26.7
--- NOTE | 2024-05-27 16:41 | A.OFFPC_ITS ---
Vital Signs 05/27/24 16:41 Height 5 ft 11 in Weight 191 lb 8 oz BMI 26.7 BP 130/84 Blood Pressure Location Lt brachial Position Sitting Pulse 68 Pulse Source Pulse Oximeter Temp 97.3 F Temp Source Temporal Artery Scan Pulse Oximetry (%) 97 Oxygen Delivery Method Room Air Intake Visit Reasons: PHYSICAL Intake Note: Patient is here today for a physical. Job Compositor Required: No Accompanied by: Self / Same As Patient Allergies loratadine Allergy (Verified 05/27/24 16:57) Difficulty Swallowing Medication List - Last Reconciled 05/27/24 by Tiffany Patel MD acyclovir 5% 1 appl topical 6XD albuterol sulfate 90 mcg/actuation (Ventolin HFA) 2 puffs inhalation Q6H PRN famotidine 20 mg PO BEDTIME Tobacco use date assessed: 05/27/24 Dental Screening Dental Screen Date: 05/27/24 Did you have a dental visit in the last 12 months?: No Did you have a dental problem in the last 6 months where you did not have access to dental care?: No Was dental information given to patient?: Patient has dentist [facility] Medical History (Updated 05/27/24 @ 17:19 by Tiffany Patel MD) Obstructive sleep apnea Surgical History History of removal of cyst (~2015) Family History (Updated 05/27/24 @ 17:12 by Tiffany Patel MD) Mother No problems noted. Father FH: kidney cancer Sister No problems noted. Maternal Grandmother Bladder cancer Paternal Grandfather Lymphoma Maternal Grandfather No problems noted. 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 1. Little interest or pleasure in doing things: not at all 2. Feeling down, depressed, or hopeless: not at all 3. Trouble falling or staying asleep, or sleeping too much: not at all 4. Feeling tired or having little energy: several days 5. Poor appetite or overeating: several days 6. Feeling bad about yourself - or that you are a failure or have let yourself or your family down: not at all 7. Trouble concentrating on things, such as reading the newspaper or watching television: several days 8. Moving or speaking so slowly that other people could have noticed. Or the opposite - being so fidgety or restless that you have been moving around a lot more than usual: several days 9. Thoughts that you would be better off or of hurting yourself in some way: not at all Total score: 4 24426 - PHQ-9 Billing: Yes Source: Developed by Drs. Uriel Helton, Glenda Mcintyre, Howie Peres and colleagues, with an educational marcell from [employer]. Thrive Questionnaire Date Thrive assessed: 05/27/24 I am a: Patient What is your living situation today?: I have a steady place to live Within the past 12 months, did the food you bought not last and you didn't have the money to get more?: Never true Within the past 12 months, did you worry whether your food would run out before you got money to buy more?: Never true Do you have trouble paying for medicines?: No Do you have trouble getting transportation to medical appointments?: No Do you have trouble paying your heating and electricity bill?: No Do you have trouble taking care of your child, family member or friend?: No Do you have trouble with day-to-day activities such as bathing, preparing meals, shopping, managing finances, etc.?: No Are you currently unemployed and looking for a job?: No Are you interested in more education?: No Please select the resources that you would like help with: None Currently or been in a relationship where the following occur: No concerns reported THRIVE Score: 0 AUDIT C Alcohol Use Questionnaire (AUDIT-C) 1. How often do you have a drink containing alcohol?: Monthly or less 2. How many drinks containing alcohol do you have on a typical day when you are drinking?: 3 or 4 3. How often do you have six or more drinks on one occasion?: Never Total Score: 2 CHELSY-7 AMB Questionnaire CHELSY-7 Date CHELSY - 7 assessed: 05/27/24 Feeling nervous, anxious, or on edge: 0 = Not at all Not being able to stop or control worryin = Not at all Worrying too much about different things: 0 = Not at all Trouble relaxin = Not at all Being so restless that it is hard to sit still: 1 = Several days Becoming easily annoyed or irritable: 0 = Not at all Feeling afraid as if something awful might happen: 0 = Not at all Total CHELSY-7 score (0-4 normal; 5-9 mild; 10-14 moderate; 15-21 severe): 1 Source: Developed by Drs. Uriel Helton, Glenda Mcintyre, Howie Peres and colleagues, with an educational marcell from [employer]. CHELSY-7 Assessment Billing CHELSY-7 Assessment Tool: CHELSY-7 Assessment 83568 Review of Systems Const Denies poor appetite and Denies weakness Eyes Denies no additional complaints ENT Reports Normal hearing present, Denies dizziness, Denies nasal congestion, Denies tinnitus and Denies sore throat Card Denies chest pain, Denies syncope, Denies rapid heart rate and Denies dyspnea Resp Denies cough and Denies dyspnea GI Denies change in stool character, Reports constipation, Denies diarrhea, Denies nausea and Denies vomiting Denies dysuria and Denies urinary frequency Neuro Reports Normal hearing present, Denies confusion, Denies dizziness, Denies syncope and Denies weakness Psych Denies confusion Physical exam (Primary Care) Vital Signs: Last Vital Signs Temp 97.3 F 05/27/24 16:41 Pulse 68 05/27/24 16:41 BP 130/84 05/27/24 16:41 Pulse Ox 97 05/27/24 16:41 Oxygen Delivery Method Room Air 05/27/24 16:41 BMI result Body Mass Index 26.7 Tobacco/Smoking Status: Tobacco use Status Tobacco use date assessed 05/27/24 05/27/24 16:59 Patient Tobacco Use Status Former Tobacco user 05/27/24 17:13 Tobacco use type Cigarette 05/27/24 17:13 e-Cigarette/Vaping Use Never Used 05/27/24 17:13 PHQ-9: PHQ-9 Score PHQ-9: Total score 4 05/27/24 17:08 Thrive Assessment: Date of Thrive Assessment Date Thrive assessed 05/27/24 05/27/24 16:59 Currently or been in a relationship where the following occur: No concerns r eported Const General: No confusion Orientation/consciousness: No confusion HENMT Head: Yes normocephalic Ears: external ears normal and TM's normal bilaterally Face and sinus: Yes normal facial exam Mouth: moist mucous membranes Throat: Yes tonsils normal Eyes Conjunctivae: conjunctivae normal Pupils: Equal, round and reactive pupils present and Pupil accommodation reflex normal Direct Ophthalmoscopy: normal light reflex Neck Neck: No lymphadenopathy Thyroid: Thyroid normal Chest Chest palpation & inspection: normal inspection of the chest Resp Effort & Inspection: normal respiratory effort and no audible wheezes Auscultation: clear to auscultation bilaterally, no crackles, no wheezes and lung sounds not diminished Cardio Rate: regular rate Rhythm: regular rhythm Peripheral pulses: radial pulses present and dorsalis pedis present GI Other: visual inspection normal Palpation (GI): no masses Auscultation: normal bowel sounds and normoactive bowel sounds Male General Exam: Yes normal external exam Skin General skin exam: no rashes or lesions noted Rashes: no rashes Neuro General: No confusion Cranial nerves: Yes Equal, round and reactive pupils present and Yes Normal hearing present Cognition (Neuro): normal cognition Gait exam (Neuro): Normal gait present Motor exam (neuro): 5/5 motor strength present throughout Deep tendon reflexes (DTR's): Right brachioradialis reflex intensity grade: 2+, Left brachioradialis reflex intensity grade: 2+, Right patellar reflex intensity grade: 2+ and Left patellar reflex intensity grade: 2+ Extrem General: No edema Coding Level of Care Code Est Pt Prev Care 18-39y(05967) Diagnoses Annual physical exam Z00.00 Anemia, unspecified type D64.9 Anemia type: unspecified type Mild intermittent asthma without complication J45.20 Asthma complication type: uncomplicated Asthma persistence: intermittent Asthma severity: mild Gastroesophageal reflux disease without esophagitis K21.9 Esophagitis presence: without esophagitis Obstructive sleep apnea G47.33 Left foot pain M79.672 Groin pain, chronic, left R10.32; G89.29 Additional Codes CHELSY-7 Assessment Billing - CHELSY-7 Assessment Tool: CHELSY-7 Assessment 55254 ([id number]) PHQ-9 - 10504 - PHQ-9 Billing: Yes ([id number]) Assessment & Plan Assessment & Plan (1) Annual physical exam: Code(s): Z00.00 - Encounter for general adult medical examination without abnormal findings Category: Medical Plan: Patient is advised to eat healthy, keep well hydrated, keep active and have adequate sleep. (2) Anemia: Code(s): D64.9 - Anemia, unspecified Category: Medical Qualifiers: Anemia type: unspecified type Qualified Code(s): D64.9 - Anemia, unspecified Plan: Chronic and stable (3) Asthma: Code(s): J45.909 - Unspecified asthma, uncomplicated Category: Medical Qualifiers: Asthma complication type: uncomplicated Asthma persistence: intermittent Asthma severity: mild Qualified Code(s): J45.20 - Mild intermittent asthma, uncomplicated Plan: On albuterol inhaler as needed (4) GERD (gastroesophageal reflux disease): Code(s): K21.9 - Gastro-esophageal reflux disease without esophagitis Category: Medical Qualifiers: Esophagitis presence: without esophagitis Qualified Code(s): K21.9 - Gastro-esophageal reflux disease without esophagitis Plan: Avoid the foods that causes that usually spicy foods, tomato products, juices, coffee, soda and foods that your sensitive to. After eating do not lie down, allow 3-4 hours before in lie down. And keep the head of bed above 30 degrees to avoid the acid from going up. (5) Obstructive sleep apnea: Comment: HST 06/03-AHI 13 supine AHI 22 O2 noreen 82%- 05/2024 not using Code(s): G47.33 - Obstructive sleep apnea (adult) (pediatric) Category: Medical Plan: has not been using the CPAP (6) Left foot pain: Code(s): M79.672 - Pain in left foot Category: Medical (7) Groin pain, chronic, left: Code(s): R10.32 - Left lower quadrant pain; G89.29 - Other chronic pain Category: Medical Plan History of Present Illness The patient is a 38-year-old male presenting for a physical examination. He has a history of chronic anemia, treated asthma, managed GERD, interrupted CPAP use for sleep apnea, and hallux rigidus in the left toe. The anemia has been stable over time, with normal lab results in previous tests, and the patient manages asthma symptoms with an albuterol inhaler although has not used it frequently. GERD symptoms are controlled with as-needed famotidine use, and the patient is interested in medication refills. Despite previous benefits from CPAP, he has discontinued use due to maintenance concerns and reports residual daytime fatigue. The patient has not engaged with physical therapy for left groin pain due to scheduling issues. Hallux rigidus in his left big toe also presents issues with footwear and requires consultation for management. Family history notes malignancies, including bladder cancer in the maternal grandfather and lymphoma in the paternal grandfather, with the patient's father having experienced renal cell carcinoma. Social History captures infrequent alcohol consumption, previous smoking history limited to college years, and occasional cannabis gummy use, the latter chosen to avoid the lung impact of smoking. There are no significant findings in the domains of smoking and alcohol impacting his health presently. Health Maintenance - Blood work in April showed stable anemia and normal levels of electrolytes, renal function, blood sugar, liver function, cholesterol (LDL <130, currently at 90), vitamin B12, folic acid, and thyroid function. - CPAP previously used for sleep apnea but discontinued due to maintenance, resulting in daytime fatigue. - Encouragement to maintain a healthy lifestyle, including attention to diet and exercise. - Recent flu vaccination received. - Latest tetanus vaccination up to date. Social History - Rare alcohol use, approximately every three months with 3-4 drinks on such occasions. - Former smoker, ceased during college years. - Occasional use of cannabis gummies. - Reports previous use of CPAP machine for sleep apnea benefits, discontinued due to maintenance demands. Review of Systems - Neurological: Denies dizziness, passing out, headaches. - Respiratory: Denies current chest pain, previously used CPAP. - Gastrointestinal: Denies nausea and vomiting, reports GERD managed with famotidine. - Musculoskeletal: Reports hallux rigidus in left toe. - Neurological: Reports daytime fatigue some days of the week. - Sensory: Denies visual disturbances beyond corrected with glasses. - Ears: Denies difficulty with hearing. - Genitourinary: Denies nocturia, dysuria. Physical Exam General: Cooperative, overweight, healthy appearing, comfortable, no acute distress and well developed Orientation: Patient oriented x3 Limitations: No limitations Head: Normal to inspection Ears: Hearing grossly normal bilaterally Nose: Normal external nose present Face and sinus: Normal facial exam Eyes: Appearance normal, both eyes and all related structures Neck: Normal visual inspection and Yes full ROM Respiratory: Normal respiratory effort and able to speak in complete sentences. Clear to auscultation bilaterally Cardiovascular: Regular rate and rhythm. Normal S1 and S2 GI: Normal to inspection. Soft to palpation and nontender Skin: No rashes or lesions noted Neuro: Patient oriented x3 Extremities: Normal to inspection, except for hallux rigidus in the left first toe Results - Labs: Hemoglobin 12.7, Hematocrit 37, Normal electrolytes, renal function, blood sugar, liver function, cholesterol (LDL: 90), Vitamin B12, folic acid, thyroid function within normal limits. Plan I aim to manage the patient's conditions effectively through continued monitoring of anemia, asthma, and GERD, alongside introducing a new course of action for sleep apnea with the re-initiation of CPAP. The patient's hallux rigidus condition may require consultation with a special needs caregiver. Coordination will occur with physical therapy services for groin pain management. Health maintenance will emphasize exercise, dietary considerations, reduced alcohol intake, and smoking abstinence, supporting overall well-being with regular screenings and vaccinations. Patient was informed and verbally consented to the use of an ambient scribe for clinic note documentation during this visit. Discussion Notes During the visit, I reviewed the patient's current health status, focusing on chronic management plans. We discussed management strategies for anemia, ensuring blood work remains stable and adjusting as necessary. The patient acknowledges the necessity of maintaining asthma and GERD management regimens and is receptive to refilling medications. I addressed the importance of re- introducing CPAP therapy for improved sleep quality and reduced fatigue, considering an ENT referral if symptoms persist. We touched upon potential therapeutic advances for hallux rigidus and reasons to pursue further evaluation. I reinforced the significance of social modifications and health maintenance, involving lifestyle adjustments and vaccination adherence. We agreed on the benefits of therapeutic interventions while options and follow-up care needed were clearly outlined. Patient Instructions - Continue using famotidine as needed for GERD and refill your prescription. - Manage asthma with albuterol inhaler as needed; ensure it is not . - Consider re-initiating CPAP therapy for sleep apnea to reduce snoring and daytime tiredness. - Consult with a special needs caregiver for your left toe's hallux rigidus. - Follow up with physical therapy for left groin pain when contacted. - Maintain healthy lifestyle habits with balanced nutrition and regular exercise . - Avoid smoking and limit alcohol intake to safe levels. - Stay updated with vaccinations, including flu and tetanus. - Monitor and report any new symptoms or changes in your condition. - Schedule regular eye exams annually; don't forget to have your eyes dilated next time. - Contact us if you have any healthcare questions or concerns prior to your next appointment. Orders: Referrals Ear/Nose/Throat Referral G47.33 - Obstructive sleep apnea (adult) (pediatric) Podiatry Referral M79.672 - Pain in left foot Medications: Refilled famotidine 20 mg PO BEDTIME 30 tabs 1RF K21.9 - Gastro-esophageal reflux disease without esophagitis albuterol sulfate 90 mcg/actuation (Ventolin HFA) 2 puffs inhalation Q6H PRN 8.5 grams 0RF bronchospasm J45.909 - Unspecified asthma, uncomplicated
== END 2024-05-27 17:23 | disposition home or self-care (01) ==
LOC: HO.HMCH 15:49
PROVIDERS: PCP Internal Medicine; Visit Provider Internal Medicine
DX: Z00.00 Encounter for general adult medical examination without abnormal findings (principal); D64.9 Anemia, unspecified; J45.20 Mild intermittent asthma, uncomplicated; K21.9 Gastro-esophageal reflux disease without esophagitis; G47.33 Obstructive sleep apnea (adult) (pediatric); M79.672 Pain in left foot; R10.32 Left lower quadrant pain; G89.29 Other chronic pain

== ENCOUNTER → 2024-05-27 15:48 | Outpatient (BNVA) | payer BC, SELFPAY | PROVIDERS: PCP Internal Medicine; Visit Provider Internal Medicine | DX: Z00.00 Encounter for general adult medical examination without abnormal findings (principal); D64.9 Anemia, unspecified; J45.20 Mild intermittent asthma, uncomplicated; K21.9 Gastro-esophageal reflux disease without esophagitis; G47.33 Obstructive sleep apnea (adult) (pediatric); M79.672 Pain in left foot; G89.29 Other chronic pain; R10.32 Left lower quadrant pain | CPT/HCPCS: 96127 ==